=== PATIENT | female | born 1960 | race Caucasian/White ===

== ENCOUNTER 2019-06-16 05:36 | Observation (INO) | payer BC ==
--- NOTE | 2019-06-15 12:33 | PCM.HP.2 ---
H&P History of Present Illness - General Date of Service: 06/10/19 Source of Information: Patient History Limitations: Reports: No Limitations - History of Present Illness Initial Comments - Free Text/Narative: 58 year old female with left knee pain that has been bothering her for several years and getting progressively worse. History of injury with athletics in the 70's. Pain medial side of knee, worse with increased activity. Having to modify or exclude certain activities. Pain with stairs. Has been informed for quite awhile that she would need a knee replacement and she has been able to put it off but having more difficulty lately. Onset of Symptoms: Reports: Gradual Duration of Symptoms: Reports: Other (years) Location: Reports: Lower Extremity, Left Quality: Reports: Ache, Throbbing Severity: Moderate Improves with: Reports: Medication, Rest Worsens with: Reports: Movement Associated Symptoms: Reports: No Other Symptoms - Related Data Allergies/Adverse Reactions: Allergies Allergy/AdvReac Type Severity Reaction Status Date / Time No Known Allergies Allergy Verified 04/22/16 07:37 Home Medications: Home Meds Aspirin [Halfprin] 81 mg PO DAILY 04/19/16 [History] Past Medical History HEENT History: Reports: Other (See Below) Other HEENT History: niru Gastrointestinal History: Reports: Other (See Below) Other Gastrointestinal History: family hx colon cancer 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 Exam - Exam Exam: See Below - Exam General: Alert, Oriented, 4 HEENT: PERRLA, Hearing Intact, Mucosa Moist & [place], Nares Patent, Normal Nasal Septum, Posterior Pharynx Clear, Conjunctiva Clear, EOMI, EACs Clear, TMs Clear Neck: Supple, Trachea Midline, 2 Lungs: Clear to Auscultation, Normal Respiratory Effort Cardiovascular: Regular Rate, Regular Rhythm GI/Abdominal Exam: Normal Bowel Sounds, Soft, Non-Tender, No Distention (Female) Exam: Deferred Rectal (Female) Exam: Deferred Back Exam: Normal Inspection, Full Range of Motion Extremities: Leg Pain, Other (left knee tender medially, no instability, no effusion, negative patella grind, mild varus) Peripheral Pulses: 2+: Dorsalis Pedis (L), Dorsalis Pedis (R) Skin: Warm, Dry, Intact Neurological: Cranial Nerves Intact, Reflexes Equal Bilateral Neuro Extensive - Mental Status: Alert, Oriented x3, Normal Mood/Affect, Normal Cognition, Memory Intact Neuro Extensive - Motor, Sensory, Reflexes: CN II-XII Intact, Normal Gait, Normal Reflexes Psychiatric: Alert, Normal Affect, Normal Mood - Problem List (1) Knee pain, left SNOMED Code(s): 60779241 ICD Code: M25.562 - PAIN IN LEFT KNEE Status: Acute Qualifiers: Chronicity: chronic Qualified Code(s): M25.562 - Pain in left knee; G89.29 - Other chronic pain (2) Osteoarthritis, knee SNOMED Code(s): 744386791 ICD Code: M17.10 - UNILATERAL PRIMARY OSTEOARTHRITIS, UNSPECIFIED KNEE Status: Acute Qualifiers: Osteoarthritis type: primary Laterality: left Qualified Code(s): M17.12 - Unilateral primary osteoarthritis, left knee Problem List Initiated/Reviewed/Updated: Yes Assessment/Plan Comment:: Osteoarthritis left knee with varus collapse. Discussed medial unicompartmental vs total knee arthroplasty. I believe she would be a candidate for a uni-knee, but will have total knee available as a back up. Risks, benefits, potential complications discussed.
[2019-06-16] MEDS ORDERED: Lactated Ringers 1,000 ML IV SCH (06:10)
[2019-06-16] MEDS ORDERED: Povidone-Iodine 10% Soln 118.25 ML Bottle ONE (06:36)
[2019-06-16] MEDS: Nozin Nasal Sanitizer NASBOTH SCH ×3 (06:38→21:23)
[2019-06-16] MEDS ORDERED: fentaNYL 100 MCG/2 ML SDV ONE (07:18)
[2019-06-16] MEDS ORDERED: Midazolam 1 MG/ML 2 ML SDV ONE (07:18)
[2019-06-16] MEDS ORDERED: Propofol 200 MG/20 ML SDV ONE (07:18)
[2019-06-16] MEDS ORDERED: ceFAZolin 2 GM in Premix Bag 1 BAG IV ONE (07:30)
[2019-06-16] MEDS ORDERED: Ondansetron 4 MG/2 ML SDV ONE (07:53)
[2019-06-16] MEDS ORDERED: Lactated Ringers 1,000 ML ONE (08:05)
[2019-06-16] MEDS ORDERED: Bupivacaine 0.25% 10 ML SDV INJECT ONE (08:22)
[2019-06-16] MEDS ORDERED: Acetaminophen/HYDROcodone 325-5 MG Tab PO PRN (09:14)
[2019-06-16] MEDS ORDERED: Magnesium Hydroxide 400 MG/5 ML Susp 30 ML Cup PO PRN (09:14)
[2019-06-16] MEDS ORDERED: Sodium Chloride 0.9% 1,000 ML IV SCH (09:15)
--- NOTE | 2019-06-16 10:07 | CRLCR ---
Indication: Left knee arthroplasty Technique: Left knee 2 view Findings: Hardware from a left knee hemiarthroplasty is in satisfactory position. Bone alignment is normal. No sign of acute fracture. There are postoperative changes in the soft tissues. Dictated by Cheikh Guzman MD @ Jun 16 2019 10:02AM Signed by Dr. Cheikh Guzman @ Jun 16 2019 10:04AM
[2019-06-16] MEDS: Morphine 2 MG/ML SYRINGE IVPUSH PRN ×2 (11:49→14:45)
[2019-06-16] MEDS: Acetaminophen/oxyCODONE 325-5 MG Tab PO PRN ×3 (13:07→21:22)
[2019-06-16] MEDS: Ketorolac 30 MG/ML SDV IVPUSH PRN (16:08)
[2019-06-16] MEDS: ceFAZolin 1 GM in Premix Bag 1 BAG IV SCH (16:09)
[2019-06-16] MEDS: Ondansetron 4 MG/2 ML SDV IVPUSH PRN (18:57)
[2019-06-16] MEDS: Docusate Sodium 100 MG Cap PO SCH (21:22)
[2019-06-17] MEDS: ceFAZolin 1 GM in Premix Bag 1 BAG IV SCH ×2 (01:10→07:24)
[2019-06-17] MEDS: Acetaminophen/oxyCODONE 325-5 MG Tab PO PRN ×2 (01:10→06:50)
[2019-06-17] MEDS: Ondansetron 4 MG/2 ML SDV IVPUSH PRN ×2 (07:21→11:18)
[2019-06-17] MEDS: Ketorolac 30 MG/ML SDV IVPUSH PRN (08:36)
[2019-06-17] MEDS: Docusate Sodium 100 MG Cap PO SCH (09:39)
[2019-06-17] MEDS: Nozin Nasal Sanitizer NASBOTH SCH (09:39)
[2019-06-17] MEDS ORDERED: Scopolamine 1.5 MG Transdermal Patch TOP SCH (11:30)
[2019-06-17 14:52] VITALS: BP 143/73; PULSE 62
[2019-06-17] MEDS: Calcium Carbonate 500 MG Tab.Chew PO PRN ×2 (14:59→17:15)
[2019-06-17] MEDS ORDERED: Ibuprofen 600 MG Tab PO PRN (16:19)
[2019-06-17] MEDS ORDERED: Acetaminophen 325 MG Tab PO PRN (16:19)
--- NOTE | 2019-06-17 17:30 | PCM.DCSUM1 ---
Discharge Summary - Hospital Course Diagnosis: Stroke: No - Discharge Data Discharge Date: 06/17/19 Discharge Disposition: Home, Self-Care 01 Condition: Good - Referral to Home Health Date of Face to Face Encounter: 06/17/19 Primary Care Physician: Kiersten Ziegler MD - Discharge Diagnosis/Problem(s) (1) Knee pain, left SNOMED Code(s): 82400307 ICD Code: M25.562 - PAIN IN LEFT KNEE Status: Acute Current Visit: No Qualifiers: Chronicity: chronic Qualified Code(s): M25.562 - Pain in left knee; G89.29 - Other chronic pain (2) Osteoarthritis, knee SNOMED Code(s): 506148706 ICD Code: M17.10 - UNILATERAL PRIMARY OSTEOARTHRITIS, UNSPECIFIED KNEE Status: Acute Current Visit: No Qualifiers: Osteoarthritis type: primary Laterality: left Qualified Code(s): M17.12 - Unilateral primary osteoarthritis, left knee - Patient Summary/Data Operative Procedure(s) Performed: left unicompartmental arthroplasty Consults: Consultations 06/16/19 09:14 Consult to Case Management/Rotary Pump Operator [CONS] Routine Comment: Physician Instructions: Service(s) to be Consulted: Case Management Reason for Consult: Plan for Discharge PT Evaluation and Treatment [CONS] Routine Please Evaluate and Treat. PT Reason for Consult: Post op Ortho Surgery This query below is only for informational purposes and is not editable. PT Evaluation and Treatment [CONS] Routine Please Evaluate and Treat. PT Reason for Consult: Post op Ortho Surgery Knee Pending Discharge: Yes, 1- 2 days Special Instructions: Schedule first outpatient PT appointment in 3-5 day post discharge. This query below is only for informational purposes and is not editable. Hospital Course: Tolerated surgery well but had difficulty with nausea and vomiting POD #1. Treated with zofran, scopolamine patch and discontinuation of narcotics. Did well with PT and was independent with a walker. Nausea finally resolved by the late afternoon POD#1 and tolerated po intake. Discharged to home. Outpatient PT scheduled. - Patient Instructions Diet: Usual Diet as Tolerated Activity: Apply Ice, As Tolerated, Full Weight Bearing Showering/Bathing: Shower in AM Wound/Incision Care: Keep Operative Site/Wound Site Clean and Dry Notify Provider of: Fever, Increased Pain, Swelling and Redness, Drainage, Nausea and/or Vomiting - Discharge Plan *PRESCRIPTION DRUG MONITORING PROGRAM REVIEWED*: No *COPY OF PRESCRIPTION DRUG MONITORING REPORT IN PATIENT GAVIN: No Prescriptions/Med Rec: traMADol [Ultram] 50 mg PO Q6H PRN #28 tab PRN Reason: Pain Home Medications: Home Meds Aspirin [Halfprin] 81 mg PO DAILY 04/19/16 [History] traMADol [Ultram] 50 mg PO Q6H PRN #28 tab 06/17/19 [Rx] Oxygen Therapy Mode: Room Air Patient Handouts: Knee Rehabilitation Guidelines Following Surgery Referrals: Rbobin Barreto MD [Physician] - 07/01/19 1:15 pm - Discharge Summary/Plan Comment DC Time >30 min.: No - General Info Functional Status: Reports: Pain Controlled, Tolerating Diet, Ambulating, Urinating - Review of Systems General: Reports: No Symptoms HEENT: Reports: No Symptoms Pulmonary: Reports: No Symptoms Cardiovascular: Reports: No Symptoms Gastrointestinal: Reports: No Symptoms Genitourinary: Reports: No Symptoms Musculoskeletal: Reports: Leg Pain Skin: Reports: No Symptoms Neurological: Reports: No Symptoms Psychiatric: Reports: No Symptoms - Patient Data Vitals - Most Recent: Last Vital Signs Temp 36.3 C 06/17/19 14:51 Pulse 62 06/17/19 14:51 Resp 16 06/17/19 14:51 BP 143/73 H 06/17/19 14:51 Pulse Ox 97 06/17/19 14:51 Weight - Most Recent: 87.543 kg I&O - Last 24 hours: Intake & Output 06/17/19 06/17/19 06/17/19 06:59 14:59 22:59 Intake Total 550 Output Total 1999 600 Balance -1450 -600 Med Orders - Current: Current Medications Acetaminophen (Tylenol) 650 mg PO Q4H PRN PRN Reason: Pain (moderate 4-6) Hydrocodone Bitart/Acetaminophen ([place] 325-5 Mg) 1 tab PO Q3H PRN PRN Reason: Pain Bandage/Support Products ( Nasal Commodity Supervisor) 1 applic NASBOTH BID KARIS Last Admin: 06/17/19 09:39 Dose: 1 applic Calcium Carbonate/Glycine (Tums) 1,000 mg PO Q2H PRN PRN Reason: Indigestion Last Admin: 06/17/19 17:15 Dose: 1,000 mg Docusate Sodium (Colace) 100 mg PO BID [facility] Last Admin: 06/17/19 09:39 Dose: 100 mg Ibuprofen (Motrin) 600 mg PO Q6H PRN PRN Reason: Pain (moderate 4-6) Last Admin: 06/17/19 16:32 Dose: 600 mg Magnesium Hydroxide (Milk Of Magnesia) 30 ml PO BID PRN PRN Reason: Constipation Morphine Sulfate (Morphine) 2 mg IVPUSH Q1H PRN PRN Reason: Breakthrough Pain Last Admin: 06/16/19 14:45 Dose: 2 mg Scopolamine Patch (Check) 1 each TOP DAILY [facility] Ondansetron HCl (Zofran) 4 mg IVPUSH Q6H PRN PRN Reason: Nausea/Vomiting Last Admin: 06/17/19 11:18 Dose: 4 mg Scopolamine (Transderm-Scop) 1.5 mg TOP Q72H [facility] Stop: 06/20/19 08:00 Last Admin: 06/17/19 11:34 Dose: 1.5 mg Discontinued Medications Bupivacaine HCl (Sensorcaine-Mpf 0.25%) 10 ml INJECT .STK-MED ONE Stop: 06/16/19 08:23 Last Admin: 06/16/19 08:22 Dose: 10 ml Fentanyl (Sublimaze) Confirm Administered Dose 100 mcg .ROUTE .STK-MED ONE Stop: 06/16/19 07:19 Cefazolin Sodium/Dextrose 2 gm (/ Premix) 50 mls @ 100 mls/hr IV ONETIME ONE Stop: 06/16/19 07:59 Last Admin: 06/16/19 07:05 Dose: 100 mls/hr Lactated Ringer's (Ringers, Lactated) 1,000 mls @ 100 mls/hr IV ASDIRECTED [facility] Last Admin: 06/16/19 06:40 Dose: 100 mls/hr Lactated Ringer's (Ringers, Lactated) Confirm Administered Dose 1,000 mls @ as directed .ROUTE .STK-MED ONE Stop: 06/16/19 08:06 Cefazolin Sodium/Dextrose 1 gm (/ Premix) 50 mls @ 200 mls/hr IV Q8H [facility] Stop: 06/17/19 08:14 Last Admin: 06/17/19 07:24 Dose: 200 mls/hr Sodium Chloride (Normal Saline) 1,000 mls @ 125 mls/hr IV ASDIRECTED KARIS Last Admin: 06/16/19 14:42 Dose: 125 mls/hr Ketorolac Tromethamine (Toradol) 30 mg IVPUSH Q8H PRN PRN Reason: Pain Stop: 06/21/19 09:15 Last Admin: 06/17/19 08:36 Dose: 30 mg Midazolam HCl (Versed 1 Mg/Ml) Confirm Administered Dose 2 mg .ROUTE .STK-MED ONE Stop: 06/16/19 07:19 Ondansetron HCl (Zofran) Confirm Administered Dose 4 mg .ROUTE .STK-MED ONE Stop: 06/16/19 07:54 Oxycodone/Acetaminophen (Percocet 325-5 Mg) 2 tab PO Q4H PRN PRN Reason: Pain Last Admin: 06/17/19 06:50 Dose: 2 tab Povidone Iodine (Betadine 10% Soln) Confirm Administered Dose 1 ml .ROUTE .STK- MED ONE Stop: 06/16/19 06:37 Last Admin: 06/16/19 08:22 Dose: 40 ml Propofol (Diprivan 20 Ml) Confirm Administered Dose 200 mg .ROUTE .STK-MED ONE Stop: 06/16/19 07:19 - Exam General: Reports: Alert, Oriented HEENT: Reports: Pupils Equal, Pupils Reactive, EOMI, Mucous Membr. Moist/[place] Neck: Reports: Supple Lungs: Reports: Clear to Auscultation, Normal Respiratory Effort Cardiovascular: Reports: Regular Rate, Regular Rhythm GI/Abdominal Exam: Normal Bowel Sounds, Soft, Non-Tender, No Distention (Female) Exam: Deferred Rectal (Female) Exam: Deferred Back Exam: Reports: Normal Inspection Extremities: Joint Swelling, Limited Range of Motion Skin: Reports: Warm, Dry Wound/Incisions: Reports: Healing Well, No Drainage Neurological: Reports: No New Focal Deficit Psy/Mental Status: Reports: Alert, Normal Affect, Normal Mood
[2019-06-18] MEDS ORDERED: SCOPOLAMINE PATCH CHECK TOP SCH (09:00)
--- NOTE | 2019-07-05 13:26 | OR ---
DATE OF PROCEDURE: 06/16/2019 SURGEON: Robbin Barreto MD PREOPERATIVE DIAGNOSIS: Osteoarthritis of left knee, medial compartment. POSTOPERATIVE DIAGNOSES: Osteoarthritis of left knee, medial compartment, end-stage with minimal chondromalacia of patellofemoral joint. PROCEDURE: Medial unicompartmental arthroplasty using [employer] ZUK component. ANESTHESIA: Spinal with sedation. INDICATIONS: Bita is a 58-year-old female with a history of progressive pain in her left knee over the past year. Pain is stiffness, not interfering with activities of daily living. She has failed conservative treatment. X-rays reveal medial joint space collapse with mild varus deformity. Due to some peripheral osteophytes on the lateral femoral condyle, there was concern about significant degenerative changes throughout the knee. She is brought to the operating room for a medial unicompartmental arthroplasty with evaluation of the other 2 compartments and possible total knee arthroplasty if necessary. Risks, benefits, and potential complications of the procedure were discussed. She is aware of the need for intraoperative decision for unicompartmental versus total knee arthroplasty. DESCRIPTION OF PROCEDURE: After adequate anesthesia was obtained, the patient was placed supine with a tourniquet about the left upper thigh. Left leg was prepped and draped in a sterile fashion. Leg was exsanguinated and tourniquet inflated to 300 mmHg pressure. A longitudinal incision was made just slightly medial of midline from the tuberosity to just above the superior pole of the patella. This carried down to the subcutaneous tissues, and hemostasis was obtained with electrocautery. Medial parapatellar arthrotomy was performed. Patellofemoral joint was inspected. This revealed intact cartilage on the patella with some minimal softening. Grade 1 and early grade 2 changes of the trochlear groove were noted without full-thickness loss. Medial compartment showed end-stage degeneration with full- thickness cartilage loss. Patella was retracted more laterally. After extending the parapatellar incision, the lateral compartment was evaluated. This revealed intact articular cartilage on the femoral condyle. Decision was made to proceed with an unicompartmental arthroplasty. Anterior horn of the medial meniscus was excised, and the anterior lip of the tibial plateau was removed with an oscillating saw. Knee was extended, and the extramedullary alignment guide was placed. Guide was aligned and tensioned. It was then secured to the tibia and femur with threaded pins. Distal femoral cut was then made. Distal femoral jig was removed. The knee was flexed, and the tibial plateau was then cut using combination of oscillating and reciprocating saws. Guide was removed. Remaining medial meniscus was excised. The femur was then sized, and the appropriate cutting jig was secured to the distal femur. Remaining distal femoral cuts were made along with drill holes for the femoral pegs. Tibia was then sized. Trial tibial tray was secured with a pin, and the peg holes were drilled. Trial articular surfaces were then placed. Knee was taken through range of motion and found to be stable and well balanced in flexion and extension. Trials were removed. The knee was thoroughly irrigated with pulse lavage. Bone surfaces were dried. Components were cemented in place, and excess cement was removed. Trial polyethylene implant was placed, and the knee was held in full extension with the 2 mm spacer as cement cured. Again taken through range of motion and tension tested in both flexion and extension. Trial was removed. Knee was irrigated once again, and final polyethylene was snapped into position. Knee was then irrigated with a dilute Betadine solution, which was then irrigated out, and the incision was closed using #2 Ethibond in a running fashion on the capsule, 2-0 Vicryl and a running 3-0 Monocryl on the skin. Steri-Strips were applied. Light compressive dressing was then placed. The patient tolerated the procedure very well. There were no complications, taken from the operating room in stable condition. Robbin Barreto MD /[id number]
== END 2019-06-17 18:00 | disposition home or self-care (01) ==
LOC: JP.SDS 05:36 → JP.MS 09:14
PROVIDERS: ADMIT Specialist; ATTEND Specialist
DX: M17.12 Unilateral primary osteoarthritis, left knee (principal); M22.42 Chondromalacia patellae, left knee; K21.9 Gastro-esophageal reflux disease without esophagitis; E66.9 Obesity, unspecified; Z79.82 Long term (current) use of aspirin
CPT/HCPCS: 27446; 36415; 73560; 80053; 85027; 86850; 86900; 86901; 96361; 96374; 97110; 97116; 97161; 97530; 97535; A9270; C1713; C1776; G0378; J0690; J1885; J2250; J2270; J2405; J2704; J3010; J3490; J7030; J7120

== ENCOUNTER 2021-07-23 06:30 | Day surgery (SDC) | payer BC ==
[2021-07-23] MEDS ORDERED: Sodium Chloride 0.9% 1,000 ML IV SCH (07:00)
[2021-07-23] MEDS ORDERED: Midazolam 1 MG/ML 2 ML SDV ONE (07:19)
[2021-07-23] MEDS ORDERED: fentaNYL 100 MCG/2 ML SDV ONE (07:19)
[2021-07-23] MEDS ORDERED: Propofol 200 MG/20 ML SDV ONE (07:20)
[2021-07-23 09:10] VITALS: PULSE 55
[2021-07-23 09:21] VITALS: BP 110/68
== END 2021-07-23 09:28 | disposition home or self-care (01) ==
LOC: JP.SDS 06:30
PROVIDERS: ATTEND Surgery
DX: Z12.11 Encounter for screening for malignant neoplasm of colon (principal); K21.9 Gastro-esophageal reflux disease without esophagitis; Z80.0 Family history of malignant neoplasm of digestive organs; Z88.5 Allergy status to narcotic agent
CPT/HCPCS: J2250; J2704; J3010; J7030